=== PATIENT | female | born 1975 | race Caucasian/White ===

== ENCOUNTER 2019-02-21 02:22 | Emergency (ER) | payer BC ==
--- OUTSIDE RECORDS SUMMARY | 2019-02-21 02:30 | XMS REPORT | Continuity of Care Document ---
:1975 External Reference #:[id number] Author Name Emily Jones MD (transmitted by agent of provider Divya Cortés) Address [address] 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 Medicine Problems Description No Information Available Social History Type Date Description Comments Sex Unknown ETOH Use Currently consumes 2-3 drinks per week alcohol Tobacco Use Start: Unknown End: Patient is a former smoked in her teens Unknown smoker Smoking Status Reviewed: 02/02/19 Patient is a former smoked in her teens smoker Exercise Exercises regularly Type/Frequency Allergies, Adverse Reactions, Alerts Active Allergies Reaction Severity Comments Date Amoxicillin Moderate rash 08/10/2018 Percocet Nausea Moderate 08/10/2018 Medications Active Medications SIG Qnty Indications Ordering Provider Date Zonisamide take one cap by 90caps Feroz Lee, 10/18/2018 50mg mouth at bedtime. M.D. Capsules (take with 100 mg capsule at bedtime). Zonisamide 1 cap by mouth at 90caps G43.109 Feroz Lee, 09/20/2018 100mg bedtime (Take one M.D. Capsules 50 mg capsule at night.) Rizatriptan Benzoate 1 tab by mouth at 14tabs Kaz Jean, 08/10/2018 the onset of N.P. 10mg Tablets migraine, repeat in two hours, as needed for migraines. max 2 tablets/day, max 2 days/week Wellbutrin XL 1 by mouth every Unknown 150mg day Tablets ER 24HR Excedrin Migraine 2 tab by mouth Unknown daily as needed [phone] Tablets History Medications Zonisamide 1 by mouth at 90caps G43.109 Feroz Gonzales 09/20/2018 - 100mg bedtime Yohana Lee 09/20/2018 Capsules Zonisamide Take 1 cap PO at 120caps G43.109 Feroz Gonzales 08/10/2018 - 25mg hs for 1 wk, Yohana Lee 09/20/2018 Capsules then 2 caps PO at hs for 1 wk, then 3 caps PO at hs for 1 wk, then 4 caps PO at hs Immunizations Description No Information Available Vital Signs Date Vital Result Comment 02/02/2019 2:50pm Heart Rate 72 /min Respiratory Rate 16 /min Body Temperature 97.8 F 01/18/2019 8:27am Height 63 inches 5'3" Weight 173.00 lb Heart Rate 100 /min BP Systolic Sitting 116 mmHg Left arm reg cuff BP Diastolic Sitting 76 mmHg Left arm reg cuff Respiratory Rate 16 /min Body Temperature 97.9 F BMI (Body Mass Index) 30.6 kg/m2 Results Test Date Facility Test Result H/L Range Note Laboratory test 01/14/2019 [facility] Surgical SEE RESULT [address] [place] [address] [phone] Laboratory test 01/14/2019 [facility] Cytology SEE RESULT [address] Non-Swimming [place] [address] [phone] Her 2 Amp,Breast 01/14/2019 [facility] H2BR Result Negative Fish [address] [place] [address] [phone] H2BR Interpretation See Comment 3 H2BR Result See Comment 4 H2BR Reason for Referral adenocarcinoma H2BR Specimen Tissue, Paraffin 5 H2BR Source Left breast H2BR Tissue Id [id number] H2BR Fixative Formalin H2BR Method See Comment 6 H2BR Disclaimer See Comment 7 H2BR Released By See Comment 8 1 SEE RESULT BELOW Name: MONIKA GONZALEZ : [address]: Emily Jones MD Acct: [id number] Unit: [id number] AGE: 43 Location: Re01/14/19 SEX: F Status: REG REF SPEC: [id number] YURI: 01/14/19- DR: David Tripp MD REQ: [id number] RECD: 01/14/19-1149 STATUS: MARICHUY HOYOS DR: Emily Calvin MD _ ORDERED: LEVEL 4, IMMUNO-QUANT/3 ADDENDUM HER2, Breast Tumor, FISH, Tissue has been performed at [place], [place]. The testing reveals: Received: 21 Jan 2019 12:45 Reported: 24 Jan 2019 15:52 Result Summary: Negative Interpretation There is no evidence of HER2 (ERBB2) gene amplification in this tumor sample. According to current ASCO/CAP guidelines for HER2 testing in breast cancer, dual-probe in situ hybridization (CAN) results indicating a HER2/centromere ratio less than 2.0 and an average HER2 copy number less than 4.0 signals per cell are interpreted as CAN negative ("Group 5") (1). References: 1. dwayne Valente al., J Clin Oncol, 36(20):8889-6381, 2018 Result: nuc can(D17Z1,HER2)x2-4 HER2/D17Z1 ratio: 1.28 Average HER2 signals per cell: 3.6 Average D17Z1 signals per cell: 2.8 Reason for Referral: adenocarcinoma Specimen: Tissue, Paraffin Source: Left breast Tissue ID: [id number] CONTINUED ON NEXT PAGE DEPARTMENT OF PATHOLOGY, [address] [place] [address] Cliff Levine M.D. Director [facility] # [id number] RUN DATE: 01/25/19 [facility] LAB LIVE PAGE 2 Patient: MONIKA GONZALEZ [id number] (Continued) ADDENDUM (Continued) Fixative: Formalin Method FISH using probes for HER2 (17q12) and a chromosome 17 centromere (D17Z1) control probe ([employer] Two technologists score signals in 60 total nuclei from invasive or metastatic tumor after confirmation of probe performance by concurrent controls. Disclaimer Laboratory Developed Test (LDT). This test was developed and its performance characteristics determined by [facility] in a manner consistent with CLIA requirements. It is intended as an adjunct to existing prognostic clinical and pathologic information for breast cancer patients. This test is not intended to diagnose or screen for breast cancer. Since only a portion of the tumor was tested, it is possible that this result may not represent the entire tumor population. Per ASCO/CAP guidelines, HER2 FISH test results are valid for non-decalcified paraffin embedded specimens fixed in 10% neutral buffered formalin between 6 and 72 hours. Results from specimens fixed outside these parameters should be interpreted accordingly. Released By Monster Ny M.D., Ph.D. Addendum Signed (signature on file)__Moses Stringer MD 1148 Repeat HER-2/anival immunohistochemical staining, with appropriately reacting controls, was performed and is equivocal (2+). HER-2/anival by FISH is pending and the results will be reported in an addendum. Addendum José Miguel (signature on file)Jovi Stringer MD 1121 Immunohistochemical stains, with appropriately reacting controls, were performed with the following results: ER moderately to strongly positive, nearly 100% OR weakly to moderately positive, approximately 20% HER-2/anival pending repeat Addendum José Miguel Fields (signature on file)Jovi Stringer MD 1030 FINAL DIAGNOSIS CONTINUED ON NEXT PAGE DEPARTMENT OF PATHOLOGY, [address] [place] [address] Cliff Levine M.D. Director [facility] # [id number] RUN DATE: 01/25/19 [facility] LAB LIVE PAGE 3 Patient: MONIKA GONZALEZ [id number] (Continued) FINAL DIAGNOSIS (Continued) Breast, left, core biopsy: -- Invasive ductal adenocarcinoma of breast, with focal mucinous features: Size: 10 mm. Tumor extent and distribution: Tumor involves 2 of 2 cores and occupies 90 % of tissue volume. Estimated Plymouth grade: Estimated tubule formation: 3. Estimated nuclear grade: 2. Estimated mitotic count: 1. Combined Plymouth histologic grade: 2/3. (6/9 points). Lymphovascular invasion: Not seen. Ductal Carcinoma in situ (DCIS): Focally present. Size: 1 mm. Extent and distribution: Single focus seen in association with invasive carcinoma.. Architectural pattern: Cribriform. Nuclear grade: 2. Necrosis: Not seen. ER, OR, and Her2/Anival by immunohistochemistry with appropriate controls: ER: Pending; results will be reported in an addendum. OR: Pending; results will be reported in an addendum. Her2/Anival: Pending; results will be reported in an addendum. Microcalcifications: Not seen. Other findings: None. Predicted pTNM histopathologic stage: at least pT 1b. Comment: Dr. Stringer has reviewed this case and concurs. PRE-OPERATIVE DIAGNOSIS Left breast solid lesion 3:00; 3 cm from nipple; irregular, hypoechoic in appearance; measuring 1.4 x 1.1 x 1.4 cm CONTINUED ON NEXT PAGE DEPARTMENT OF PATHOLOGY, [address] [place] [address] Cliff Levine M.D. Director [facility] # [id number] RUN DATE: 01/25/19 [facility] LAB LIVE PAGE 4 Patient: MONIKA GONZALEZ [id number] (Continued) GROSS DESCRIPTION (Continued) GROSS DESCRIPTION The specimen is received in formalin labeled, Left Breast Core Samples Lesion , and consists of two white-pink fibrofatty soft tissue cores averaging 1.8 x 0.3 cm, focally surface by red-brown blood clot. The specimen is filtered and submitted entirely in one cassette. Signed by and Reported on: Cliff Levine MD 05/26 1008 END OF REPORT DEPARTMENT OF PATHOLOGY, [address] [place] [address] Cliff Levine M.D. Director [facility] # [id number] 2 SEE RESULT BELOW Name: MONIKA GONZALEZ : [address]: Emily Jones MD Acct: [id number] Unit: [id number] AGE: 43 Location: Re01/14/19 SEX: F Status: REG REF SPEC: [id number] YURI: 01/14/19-[address]: Emily Jones MD REQ: [id number] RECD: 01/14/19 STATUS: SOUT _ ORDERED: FNA-IMG GUID BX, LEVEL 4, CYTO ADEQ-1ST P FINAL DIAGNOSIS Axillary lymph node, left, ultrasound guided fine needle aspiration: --Malignant. --Metastatic ductal adenocarcinoma. A cell block was prepared in the evaluation of this specimen. Smears and cell block reveal similar findings. A. AXILLARY LEFT - US GUIDED LEFT AXILLARY LYMPG NODE FINE NEEDLE ASPIRATION CLINICAL HISTORY 1.3 x 1.1 x 1.2 cm left axillary lymph node. IMMEDIATE INTERPRETATION Pass 1-adequate GROSS DESCRIPTION Ultrasound guided, fine needle aspiration x 1pass with 1 alcohol fixed slide( s) and needle rinse in formalin for cell block. CONTINUED ON NEXT PAGE DEPARTMENT OF PATHOLOGY, [address] [place] [address] Cliff Levine M.D. Director [facility] # [id number] RUN DATE: 01/17/19 [facility] LAB LIVE PAGE 2 Patient: MONIKA GONZALEZ [id number] (Continued) GROSS DESCRIPTION (Continued) Signed by and Reported on: Cliff Levine MD 05/26 1130 END OF REPORT DEPARTMENT OF PATHOLOGY, [address] [place] [address] Cliff Levine M.D. Director [facility] # [id number] 3 There is no evidence of HER2 (ERBB2) gene amplification in this tumor sample. According to current ASCO/CAP guidelines for HER2 testing in breast cancer, dual-probe in situ hybridization (CAN) results indicating a HER2/centromere ratio less than 2.0 and an average HER2 copy number less than 4.0 signals per cell are interpreted as CAN negative ("Group 5") (1). References: 1. Sidra, et al., J Clin Oncol, 36(20):7434-3507, 2018 4 nuc can(D17Z1,HER2)x2-4 HER2/D17Z1 ratio: 1.28 Average HER2 signals per cell: 3.6 Average D17Z1 signals per cell: 2.8 5 Tissue, Paraffin 6 FISH using probes for HER2 (17q12) and a chromosome 17 centromere (D17Z1) control probe ([employer] Two technologists score signals in 60 total nuclei from invasive or metastatic tumor after confirmation of probe performance by concurrent controls. 7 Laboratory Developed Test (LDT). This test was developed and its performance characteristics determined by [facility] in a manner consistent with CLIA requirements. It is intended as an adjunct to existing prognostic clinical and pathologic information for breast cancer patients. This test is not intended to diagnose or screen for breast cancer. Since only a portion of the tumor was tested, it is possible that this result may not represent the entire tumor population. Per ASCO/CAP guidelines, HER2 FISH test results are valid for non-decalcified paraffin embedded specimens fixed in 10% neutral buffered formalin between 6 and 72 hours. Results from specimens fixed outside these parameters should be interpreted accordingly. 8 RESULT: Monster Ny M.D., Ph.D. Test Performed by: [address] [address] Procedures Date Code Description Status 01/14/2019 [id number] Mammogram Completed 08/25/2018 [id number] Mammogram Completed 11/30/2017 [id number] Mammogram Completed Medical Devices Description No Information Available Encounters Type Date Location Provider Dx Diagnosis Office Visit 01/18/2019 Surgical Emily Jones MD C50.912 Malignant neoplasm 8:30a [facility] of unspecified site of left female breast Office Visit 12/22/2018 [facility] Emily Jones MD N63.20 Unspecified lump 9:00a [facility] in the left breast, unspecified quadrant Office Visit 10/18/2018 [facility] Ronak Palmer NP G43.109 Migraine with 9:00a [facility] aura, not intractable, w/o status migrainosus Office Visit 08/10/2018 [facility] Odilia Gonzales G43.109 Migraine with 2:45p [facility] M.[facility]. aura, not intractable, w/o status migrainosus Assessments Date Code Description Provider 02/02/2019 C50.912 Malignant neoplasm of unspecified site of Emily Jones MD left female breast 01/18/2019 C50.912 Malignant neoplasm of unspecified site of Emily Jones MD left female breast 12/22/2018 N63.20 Unspecified lump in the left breast, Emily Jones MD unspecified quadrant 10/18/2018 G43.109 Migraine with aura, not intractable, Ronak Palmer NP without status migraino 08/10/2018 G43.109 Migraine with aura, not intractable, Feroz Lee M.D. without status migraino Plan of Treatment Future Appointment(s):02/10/2019 7:30 am - ROE Herbert at [facility]02/10/2019 7:30 am - Emily Jones MD at [facility]02/04/2019 3:00 pm - Ica ECHO Schedule at [facility]2018 3:45 pm - Emily Jones MD at [facility]04/20/2019 8:45 am - Feroz Lee M.D. at [facility]02/02/2019 - Emily Jones, [facility].912 Malignant neoplasm of unspecified site of left female breast Functional Status Description No Information Available Mental Status Description No Information Available Referrals Description No Information Available
--- NOTE | 2019-02-21 02:47 | ED ---
HPI Febrile Illness - HPI Summary HPI Summary: Patient is a 43 y/o F presenting to [facility] with chief complaint of fever. She states that around 1600 02/20/19, she began to experience, "aches and pains" and chills. Sx progressively worsened. She states that she took her temp earlier in the day, noting it was 96 F. She reports that her temperature progressively increased, with max temp being 105 F, which she measured around midnight. She states that she called an on-call oncologist, who advised her to come to ED for evaluation. PMHx of breast cancer is noted, she states that it is anticipated that she will have surgery and subsequent radiotherapy in May. Patient reports last round of chemotherapy was 02/14/2019. She denies swelling, rash, joint pain, sore throat, URI Sx, chest pain, acute abdominal pain. She notes that she is nauseous and fatigued, but characterizes this as chronic since starting chemotherapy. Some SALEH is noted, but she reports Hx of migraines and states that she gets HAs frequently. On triage, pain is rated 3/10, nothing is noted to aggravate/alleviate Sx. Home medications and allergies are reviewed. - History of Current Complaint Chief Complaint: EDFever Time Seen by Provider: 02/21/19 02:43 Hx Obtained From: Patient Hx Last Menstrual Period: 1 WEEK AGO Onset/Duration: Started Hours Ago, Still Present, Worse Since Timing: Constant, Lasting Hours Current Severity: Mild Pain Intensity: 3 Pain Scale Used: 0-10 Numeric Aggravating Factors: Nothing Alleviating Factors: Nothing Associated Signs and Symptoms: Chills, Headache, Nausea - chronic, Other: - denies swelling, arthralgia, rash, sore throat, URI Sx, chest pain, acute abdominal pain - Allergy/Home Medications Allergies/Adverse Reactions: Allergies Allergy/AdvReac Type Severity Reaction Status Date / Time adhesive Allergy Hives Verified 02/21/19 02:25 amoxicillin Allergy Unknown Verified 02/21/19 02:25 Reaction Details codeine Allergy Nausea And Verified 02/21/19 02:25 Vomiting PMH/Surg Hx/FS Hx/Imm Hx Endocrine/Hematology History: Denies: Hx Diabetes Cardiovascular History: Denies: Hx Hypertension, Hx Pacemaker/ICD Respiratory History: Denies: Hx Asthma History: Denies: Hx Renal Disease Musculoskeletal History: Reports: Other Musculoskeletal History - BACK PAIN AT TIMES RELATED TO MUSCLE STRAIN Sensory History: Denies: Hx Contacts or Glasses, Hx Hearing Aid Opthamlomology History: Denies: Hx Contacts or Glasses Neurological History: Reports: Hx Headaches, Hx Migraine Psychiatric History: Reports: Hx Anxiety - CLAUSTRAPHOBIA, Hx Depression Denies: Hx Panic Disorder - Cancer History Cancer Type, Location and Year: LEFT BREAST NO TREATMENT AT THIS TIME Hx Chemotherapy: No Hx Radiation Therapy: No - Surgical History Surgery Procedure, Year, and Place: LEFT BREAST BIOPSY [facility]. WISDOM TEETH 20 YEAS AGO. CYST FROM NECK 20 YEARS AGO Hx Anesthesia Reactions: No - Immunization History Immunizations Up to Date: Yes Infectious Disease History: No Infectious Disease History: Denies: Traveled Outside the [place] in Last 30 Days - Family History Known Family History: Positive: Other - breast cancer - Social History Alcohol Use: None Substance Use Type: Reports: None Smoking Status (MU): Former Smoker Have You Smoked in the Last Year: No Review of Systems Positive: Fever, Chills, Fatigue - chronic ENT: Other - negative - URI Sx Negative: Sore Throat Negative: Chest Pain Positive: Nausea - chronic . Negative: Abdominal Pain Positive: Myalgia - positive - "aches and pains". Negative: Arthralgia, Edema Negative: Rash Positive: Headache All Other Systems Reviewed And Are Negative: Yes Physical Exam - Summary Physical Exam Summary: Appearance: Well-appearing, Well-nourished, lying in bed comfortably Skin: Warm, dry, no obvious rash Eyes: sclera anicteric, no conjunctival pallor ENT: mucous membranes moist, pharynx appears normal Neck: Supple, nontender Respiratory: Clear to auscultation, no signs of respiratory distress Cardiovascular: Normal S1, S2. No murmurs. Normal distal pulses in tibial and radial bilaterally. Abdomen: Soft, nontender, normal active bowel sounds present Musculoskeletal: Normal, Strength/ROM Intact Neurological: A&Ox3, awake and alert, mentation is normal, speech is fluent and appropriate Psychiatric: affect is normal, does not appear anxious or depressed Triage Information Reviewed: Yes Vital Signs On Initial Exam: Initial Vitals Temp Pulse Resp BP Pulse Ox 98.1 F 118 16 103/75 98 02/21/19 02:24 02/21/19 02:24 02/21/19 02:24 02/21/19 02:24 02/21/19 02:24 Vital Signs Reviewed: Yes Diagnostics - Vital Signs Vital Signs Temp Pulse Resp BP Pulse Ox 02/21/19 02:24 98.1 F 118 16 103/75 98 - Laboratory Result Diagrams: 02/21/19 03:06 02/21/19 03:06 Lab Statement: Any lab studies that have been ordered have been reviewed, and results considered in the medical decision making process. Re-Evaluation - Re-Evaluation First Eval Re-Evaluation Time: 03:27 Comment: Aware of absolute neuts of 0.6. Course/Dx - Course Course Of Treatment: Patient is a 43 y/o F presenting to [facility] with chief complaint of fever. She states that around 1600 02/20/19, she began to experience , "aches and pains" and chills. Sx progressively worsened. She states that she took her temp earlier in the day, noting it was 96 F. She reports that her temperature progressively increased, with max temp being 105 F, which she measured around midnight. She states that she called an on-call oncologist, who advised her to come to ED for evaluation. PMHx of breast cancer is noted, she states that it is anticipated that she will have surgery and subsequent radiotherapy in May. Patient reports last round of chemotherapy was 2018. Physical exam was unremarkable. Bloodwork was obtained. Abnormal values include WBC 1.3, absolute neuts 0.6, absolute lymphs 0.4, INR 1.12, sodium 134, carbon dioxide 21, glucose 114, calcium 8.4, total bilirubin 1.4, AST 171, ALT 246, alk phos 113, total protein 6.1. Trop was negative. During ED course, patient was given fluids. Patient was discharged to home. She was instructed to call her oncologists office in the morning. She is agreeable with this plan. - Diagnoses Provider Diagnoses: Fever Discharge ED - Sign-Out/Discharge Documenting (check all that apply): Patient Departure - discharge Patient Received Moderate/Deep Sedation with Procedure: No - Discharge Plan Condition: Stable Disposition: HOME Patient Education Materials: Fever in Adults (ED), Neutropenia (ED) Referrals: Bee Calvin MD [Primary Care Provider] - Additional Instructions: Your white blood cell count was low tonight, but above the worrisome threshold for severe neutropenia. Contact your oncologist's office in the morning to let them know what happened tonight. If you feel ok they probably will just have you keep your appointment on Thursday, but they will want to check on your blood work and culture results. - Billing Disposition and Condition Condition: STABLE Disposition: Home - Attestation Statements Document Initiated by Aye: Yes Documenting Scribe: MING HERRERA Provider For Whom Aye is Documenting (Include Credential): CATHY CAMILO MD Scribe Attestation: I, MING HERRERA, scribed for CATHY CAMILO MD on 02/22/19 at 0528. Scribe Documentation Reviewed: Yes Provider Attestation: The documentation as recorded by the MING alvarado accurately reflects the service I personally performed and the decisions made by me, CATHY CAMILO MD Status of Scribmarianne Document: Viewed
[2019-02-21] MEDS ORDERED: NS 0.9% 1000 ML** 1,000 ML IV.FLUID IV ONE (02:50)
[2019-02-21 03:27] LABS: Hematocrit 35 % (35-47); Hemoglobin 12.1 g/dL (12.0-16.0); Mean Corpuscular HGB Conc 34 g/dL (31-36); Mean Corpuscular Hemoglobin 30 pg (27-31); Mean Corpuscular Volume 88 fL (80-97); Platelet Count 164 10^3/uL (150-450); Red Cell Distribution Width 12 % (10-15); White Blood Count 1.3 10^3/uL (3.5-10.8)
[2019-02-21 03:30] LABS: Activated Partial Thrombo Time 31.1 seconds (26.0-38.0); INR 1.12 (0.82-1.09)
[2019-02-21 03:39] LABS: Albumin 3.9 g/dL (3.2-5.2); Albumin/Globulin Ratio 1.8 (1-3); BUN/Creatinine Ratio 19.5 (8-20); Calcium 8.4 mg/dL (8.6-10.3); EGFR Non-African American 82.6 (>60); Globulin 2.2 g/dL (2-4); Total Bilirubin 1.4 mg/dL (0.2-1.0); Total Protein 6.1 g/dL (6.4-8.9)
[2019-02-21 03:59] LABS: ABS Eosinophils 0.1 10^3/ul (0-0.6); ABS Lymphocytes 0.4 10^3/ul (1.0-4.8); ABS Neutrophils 0.6 10^3/ul (1.5-7.7); Eosinophil % 8.8 %; Nucleated Red Blood Cells % 0.2
[2019-02-21 04:39] VITALS: BP 103/73
== END 2019-02-21 04:38 | disposition home or self-care (01) ==
LOC: ED 02:22
DX: R50.9 Fever, unspecified (principal); C50.912 Malignant neoplasm of unspecified site of left female breast; R11.0 Nausea; R53.82 Chronic fatigue, unspecified; M79.10 Myalgia, unspecified site; R51 Headache; Z88.5 Allergy status to narcotic agent; Z88.0 Allergy status to penicillin; Z91.048 Other nonmedicinal substance allergy status; Z87.891 Personal history of nicotine dependence
CPT/HCPCS: 36415; 80053; 83605; 84484; 85025; 85060; 85610; 85730; 87040; 96360; 99283

== ENCOUNTER 2020-09-20 16:04 | Observation (INO) ==
[2020-09-20] MEDS ORDERED: Ondansetron 4 mg VIAL 2 MG/ML 2 ml VIAL IV ONE (19:09)
[2020-09-20] MEDS ORDERED: NS 0.9% 1000 ml BAG 1,000 ML IV ONE (19:09)
[2020-09-20] MEDS ORDERED: Metoclopramide 5 MG/ML VIAL (10 mg) IV SLOW PU ONE (20:08)
[2020-09-20 20:15] LABS: ABS Lymphocytes 0.8 10^3/ul (1.0-4.8); ABS Monocytes 0.5 10^3/ul (0-0.8); ABS Neutrophils 5.7 10^3/ul (1.5-7.7); Eosinophil % 0.6 %; Hematocrit 39 % (35-47); Lymphocyte % 11.5 %; Mean Corpuscular HGB Conc 33 g/dL (31-36); Mean Corpuscular Hemoglobin 31 pg (27-31); Mean Corpuscular Volume 93 fL (80-97); Mean Platelet Volume 7.9 fL (7.4-10.4); Platelet Count 150 10^3/uL (150-450); Red Blood Count 4.19 10^6 /uL (3.70-4.87); Red Cell Distribution Width 13 % (10-15); White Blood Count 7.1 10^3/uL (3.5-10.8)
[2020-09-20 20:33] LABS: ALT 18 U/L (7-52); AST 18 U/L (13-39); Albumin 4.3 g/dL (3.2-5.2); Albumin/Globulin Ratio 1.7 (1-3); Alkaline Phosphatase 75 U/L (34-104); Anion Gap 6 mmol/L (2-11); BUN/Creatinine Ratio 15.2 (8-20); Blood Urea Nitrogen 10 mg/dL (6-24); C Reactive Protein 20.87 mg/L (<8.01); CO2 Carbon Dioxide 24 mmol/L (22-32); Calcium 9.3 mg/dL (8.6-10.3); Chloride 106 mmol/L (101-111); EGFR African American 118.8 (>60); EGFR Non-African American 98.2 (>60); Globulin 2.6 g/dL (2-4); Glucose 98 mg/dL (70-100); Lipase < 10 U/L (11.0-82.0); Potassium 3.5 mmol/L (3.5-5.0); Sodium 136 mmol/L (135-145); Total Protein 6.9 g/dL (6.4-8.9)
[2020-09-20 20:38] LABS: HCG Pregnancy < 0.60 mIU/mL
[2020-09-20 20:56] LABS: Urine Appearance Cloudy; Urine Bilirubin Negative (Negative); Urine Blood Negative (Negative); Urine Color Yellow; Urine Glucose Negative (Negative); Urine Ketones Negative (Negative); Urine Nitrite Negative (Negative); Urine Protein Negative (Negative); Urine Specific Gravity 1.008 (1.002-1.030); Urine Urobilinogen Negative (Negative)
[2020-09-20] MEDS ORDERED: Iohexol 300 (CONTRAST) 10 ML SDV IV ONE (20:56)
[2020-09-21] MEDS ORDERED: Morphine 2 MG/ML SYRINGE IV PRN (00:32)
[2020-09-21] MEDS ORDERED: metroNIDAZOLE IV 500 MG/100ML - ED ONCE IVPB ONE (01:00)
[2020-09-21] MEDS ORDERED: Lactated Ringers 1000 ml BAG 1,000 ML IV SCH ×2 (01:00→11:00)
[2020-09-21] MEDS ORDERED: RIZATRIPTAN 10 MG PO PRN (03:59)
[2020-09-21] MEDS ORDERED: Metoclopramide 5 MG/ML VIAL (10 mg) IV PRN (04:13)
[2020-09-21] MEDS ORDERED: ZOLMitriptan 5 mg ODT (NF) SL ONE (04:30)
[2020-09-21] MEDS ORDERED: NURTEC 75 MG PO ONE (10:00)
[2020-09-21] MEDS ORDERED: Propofol 10 MG/ML 20 ML BTL ONE ×2 (10:15→11:04)
[2020-09-21] MEDS ORDERED: Dexamethasone IV 4 MG/ML VIAL 1 ml VIAL ONE (10:16)
[2020-09-21] MEDS ORDERED: Ondansetron 4 mg VIAL 2 MG/ML 2 ml VIAL ONE (10:16)
[2020-09-21] MEDS ORDERED: Midazolam 2 mg/2 ml VIAL 1 mg/ml 2 ml VIAL (2 mg) ONE (10:16)
[2020-09-21] MEDS ORDERED: fentaNYL 250 mcg/5 ml 50 MCG/ML 5 ml VIAL (250 MCG) ONE (10:16)
[2020-09-21] MEDS ORDERED: Acetaminophen IV 1 GM/100ML 100 ML ONE (10:17)
[2020-09-21] MEDS ORDERED: Lidocaine 2% PF 5 ML VIAL ONE (10:17)
[2020-09-21] MEDS ORDERED: Rocuronium 50 mg VIAL 10 mg/ml 5 ml VIAL (50 mg) ONE ×2 (10:21→12:05)
[2020-09-21] MEDS ORDERED: Buffered Lidocaine 1% SYRIN 1 ml INTRADERM ONE (10:45)
[2020-09-21] MEDS ORDERED: Bupivacaine 0.25% SDV 30 ML ONE (10:54)
[2020-09-21] MEDS ORDERED: metroNIDAZOLE IV 500 MG/100ML 500 MG/100 ML BAG ONE (11:20)
[2020-09-21] MEDS ORDERED: Ketamine HCL 50 mg/ml 10 ml VIAL (500 MG) ONE (11:23)
[2020-09-21] MEDS ORDERED: Metoclopramide 5 MG/ML VIAL (10 mg) ONE (11:34)
[2020-09-21] MEDS ORDERED: fentaNYL 100 mcg/2 ml 50 MCG/ML VIAL IV PRN (11:52)
[2020-09-21] MEDS ORDERED: Ondansetron 4 mg VIAL 2 MG/ML 2 ml VIAL IV PRN (11:52)
[2020-09-21] MEDS ORDERED: metroNIDAZOLE IV 500 MG/100ML 500 MG/100 ML BAG IVPB SCH (12:00)
[2020-09-21] MEDS ORDERED: Esmolol 10 MG/ML 10 ML (100 mg) ONE (12:01)
[2020-09-21 14:23] VITALS: BP 122/82
[2020-09-21] MEDS ORDERED: Ciprofloxacin 400mg IVPREMIX 400 MG/200 ML BAG IVPB SCH (16:00)
== END 2020-09-21 14:10 | disposition home or self-care (01) ==
LOC: ED 16:04 → INTOOBSV 09-21 00:10 → OBSVTOIN 09-21 00:10 → MED 09-21 00:10
PROVIDERS: ADMIT Hospitalist; ATTEND Surgery Surgical Critical Care